=== PATIENT | male | born 1990 | race Caucasian/White ===

== ENCOUNTER 2017-12-25 20:41 | Inpatient (IN) | payer OTHER ==
[~2017-12-25] VITALS: Ht 172.7 cm; Wt 102.5 kg
[2017-12-25 21:05] LABS: BILIRUBIN NEGATIVE (NEGATIVE); BLOOD NEGATIVE (NEGATIVE); CLARITY CLEAR (CLEAR); COLOR YELLOW (YELLOW); GLUCOSE NEGATIVE (NEGATIVE); KETONE NEGATIVE (NEGATIVE); LEUKO ESTERASE NEGATIVE (NEGATIVE); NITRITE NEGATIVE (NEGATIVE); SPECIFIC GRAVITY >= 1.030 (1.005-1.030); UROBILINOGEN 0.2 E.U./dl (0.2-1.0)
[2017-12-25 21:14] LABS: URINE AMPHETAMINES < 1000 (1000ng/ml); URINE BARBITURATES < 200 (200ng/ml); URINE BENZODIAZEPINES < 200 (200ng/ml); URINE CANNABINOIDS (THC) < 50 (50ng/ml); URINE COCAINE > 300 (300ng/ml); URINE METHADONE < 300 (300ng/ml); URINE OPIATES < 300 (300ng/ml)
[2017-12-25 21:15] LABS: URINE PHENCYCLIDINE < 25 (25ng/ml)
[2017-12-25 21:18] LABS: BACTERIA 1+; EPITHELIAL CELLS 0-2; MUCOUS 1+; RBC 0-2 rbc/hpf (0-2)
[2017-12-25 21:19] VITALS: BP 102/81
[2017-12-25] MEDS ORDERED: PROZAC40 M1 PO (21:24)
[2017-12-25] MEDS ORDERED: BUSPAR15 MG PO (21:24)
[2017-12-25] MEDS ORDERED: SEROQUEL200 MG PO (21:25)
[2017-12-25 21:35] LABS: ABG BASE EXCESS -1.1 mmol/L (-2.0-2.0); ABG HCO3 23.4 mmol/l (22-26); ARTERIAL BLOOD GAS PCO2 39.6 mmHg (35-45); ARTERIAL BLOOD GAS PH 7.387 (7.35-7.45); ARTERIAL BLOOD GAS PO2 51.7 mmHg (80-90); IONIZIED CALCIUM 4.74 MG/DL (4.5-5.6)
[2017-12-25 21:43] LABS: BASO % 0.3 % (0.0-1.0); EOS # 0.1 10*3/uL (0.0-0.4); EOS % 0.7 % (1.0-4.0); HEMOGLOBIN 15.4 g/dl (14.0-18.0); LYMPH # 2.1 10*3/uL (1.3-4.4); MEAN CORPUSCULAR HGB 30.1 pg (27.0-31.0); MEAN CORPUSCULAR HGB CONC 32.8 g/dl (33.0-37.0); MEAN PLATELET VOLUME 9.6 fl (9.6-12.3); MONO % 6.9 % (3.0-9.0); NEUT # 10.5 10*3/uL (2.3-7.9); NEUT % 76.7 % (47.0-73.0); PLATELET COUNT AUTOMATED 229 10*3/uL (130-400); RED BLOOD COUNT 5.11 10*6/uL (4.50-5.90); RED CELL DISTRI WIDTH 12.7 % (0-14.5); WHITE BLOOD COUNT 13.7 10*3/uL (4.8-10.8)
[2017-12-25 22:17] LABS: ALBUMIN 3.8 gm/dl (3.1-4.5); ALKALINE PHOSPHATASE 70 U/L (45-117); BUN 24 mg/dl (7-24); CHLORIDE 106 mmol/L (98-107); CREATININE 1.13 mg/dL (0.70-1.30); POTASSIUM 4.2 mmol/L (3.5-5.1); SGOT/AST 27 IU/L (3-35); SGPT/ALT 37 U/L (12-78); SODIUM 138 mmol/L (136-145); TOTAL PROTEIN 7.1 gm/dL (6.4-8.2)
[2017-12-25 22:18] LABS: ACETAMINOPHEN (TYLENOL) < 2.0 ug/ml (10-30); ETHYL ALCOHOL < 3.0 mg/dl (<3); TROPONIN I < 0.015 ng/ml (<0.045)
[2017-12-26 00:17] VITALS: BP 116/66
[2017-12-26 04:00] VITALS: BP 94/57
[2017-12-26 05:54] LABS: ALBUMIN 3.5 gm/dl (3.1-4.5); BUN 21 mg/dl (7-24); CHLORIDE 104 mmol/L (98-107); CHOLESTEROL 166 mg/dL (<200); CREATININE 0.82 mg/dL (0.70-1.30); HEMATOCRIT 42.1 % (42.0-52.0); HEMOGLOBIN 13.8 g/dl (14.0-18.0); MEAN CELL VOLUME 91.5 fl (80.0-94.0); MEAN CORPUSCULAR HGB CONC 32.8 g/dl (33.0-37.0); MEAN PLATELET VOLUME 10.8 fl (9.6-12.3); PHOSPHOROUS 3.6 mg/dL (2.5-4.9); POTASSIUM 3.7 mmol/L (3.5-5.1); RED CELL DISTRI WIDTH 12.8 % (0-14.5); SGOT/AST 17 IU/L (3-35); SGPT/ALT 30 U/L (12-78); SODIUM 139 mmol/L (136-145); TOTAL PROTEIN 6.6 gm/dL (6.4-8.2); TRIGLYCERIDES 78 mg/dl (<150); VLDL CHOLESTEROL 16 mg/dL (6-40); WHITE BLOOD COUNT 14.7 10*3/uL (4.8-10.8)
[2017-12-26 06:00] LABS: ALKALINE PHOSPHATASE 62 U/L (45-117); FREE T4 0.81 ng/dl (0.76-1.46); HDL CHOLESTEROL 48 mg/dl (40-60); LDL CHOLESTEROL 102 mg/dL (9-159); THYROID STIM HORMONE (HS) 0.663 uIU/ml (0.358-4.75)
[2017-12-26 06:12] LABS: PLATELET COUNT AUTOMATED 181 10*3/uL (130-400)
[2017-12-26 07:05] LABS: ATYPICAL LYMPHS 1 % (0-0); PLATELET SUFFICIENCY NORMAL (NORMAL); TOTAL CELLS COUNTED 100 #CELLS
[2017-12-26 08:00] VITALS: BP 103/58
[2017-12-26 08:22] LABS: VITAMIN D, 25-HYDROXY 16.3 ng/mL (30-100)
[2017-12-26 12:00] VITALS: BP 94/49
[2017-12-26 16:00] VITALS: BP 103/47
[2017-12-26 20:00] VITALS: BP 100/42
[2017-12-27] VITALS: BP 122/78
[2017-12-27 04:00] VITALS: BP 120/70
[2017-12-27 05:46] LABS: ALBUMIN 3.4 gm/dl (3.1-4.5); ALKALINE PHOSPHATASE 62 U/L (45-117); BUN 14 mg/dl (7-24); CHLORIDE 102 mmol/L (98-107); CREATININE 0.66 mg/dL (0.70-1.30); PHOSPHOROUS 3.6 mg/dL (2.5-4.9); POTASSIUM 3.8 mmol/L (3.5-5.1); SGOT/AST 21 IU/L (3-35); SGPT/ALT 30 U/L (12-78); SODIUM 139 mmol/L (136-145); TOTAL PROTEIN 6.5 gm/dL (6.4-8.2)
[2017-12-27 06:01] LABS: BASO % 0.4 % (0.0-1.0); EOS # 0.3 10*3/uL (0.0-0.4); EOS % 3.2 % (1.0-4.0); HEMATOCRIT 41.8 % (42.0-52.0); HEMOGLOBIN 14.1 g/dl (14.0-18.0); LYMPH # 1.8 10*3/uL (1.3-4.4); MEAN CELL VOLUME 89.9 fl (80.0-94.0); MEAN CORPUSCULAR HGB 30.3 pg (27.0-31.0); MEAN CORPUSCULAR HGB CONC 33.7 g/dl (33.0-37.0); MEAN PLATELET VOLUME 9.8 fl (9.6-12.3); MONO # 0.8 10*3/uL (0.1-1.0); NEUT # 5.2 10*3/uL (2.3-7.9); PLATELET COUNT AUTOMATED 190 10*3/uL (130-400); RED BLOOD COUNT 4.65 10*6/uL (4.50-5.90); RED CELL DISTRI WIDTH 12.6 % (0-14.5); WHITE BLOOD COUNT 8.1 10*3/uL (4.8-10.8)
[2017-12-27 08:00] VITALS: BP 110/70
[2017-12-27 12:00] VITALS: BP 118/64
[2017-12-27 16:00] VITALS: BP 125/62
[2017-12-27 20:00] VITALS: BP 141/68
[2017-12-28] VITALS: BP 119/57
[2017-12-28 08:00] VITALS: BP 121/65
[2017-12-28 12:00] VITALS: BP 135/63
[2017-12-28 16:00] VITALS: BP 122/62
[2017-12-28 20:00] VITALS: BP 142/71
[2017-12-29] VITALS: BP 126/77
[2017-12-29 08:00] VITALS: BP 114/73
[2017-12-29 12:00] VITALS: BP 122/76
[2017-12-29] MEDS ORDERED: ATARAX,VISTARIL50 MG PO (12:48)
[2017-12-29] MEDS ORDERED: DOXYCYCLINE MO100 M1 PO (12:48)
[2017-12-29] MEDS ORDERED: VITAMIN D-32000 UNIT PO (12:48)
[2017-12-29 16:00] VITALS: BP 128/74
[2017-12-29 20:00] VITALS: BP 125/70
[2017-12-30] VITALS: BP 108/61
[2017-12-30 06:06] LABS: BASO % 0.6 % (0.0-1.0); EOS # 0.3 10*3/uL (0.0-0.4); EOS % 4.3 % (1.0-4.0); HEMATOCRIT 44.4 % (42.0-52.0); HEMOGLOBIN 14.8 g/dl (14.0-18.0); LYMPH # 2.1 10*3/uL (1.3-4.4); LYMPH % 29.6 % (27.0-41.0); MEAN CELL VOLUME 89.7 fl (80.0-94.0); MEAN CORPUSCULAR HGB 29.9 pg (27.0-31.0); MEAN CORPUSCULAR HGB CONC 33.3 g/dl (33.0-37.0); MEAN PLATELET VOLUME 9.4 fl (9.6-12.3); MONO # 0.8 10*3/uL (0.1-1.0); NEUT # 3.7 10*3/uL (2.3-7.9); NEUT % 52.9 % (47.0-73.0); PLATELET COUNT AUTOMATED 234 10*3/uL (130-400); RED BLOOD COUNT 4.95 10*6/uL (4.50-5.90); RED CELL DISTRI WIDTH 12.3 % (0-14.5)
[2017-12-30 06:31] LABS: CREATININE 0.83 mg/dL (0.70-1.30)
[2017-12-30 08:00] VITALS: BP 128/86
[2017-12-30 12:00] VITALS: BP 119/62
== END 2017-12-30 14:59 | disposition home or self-care (01) | DRG 917 ==
LOC: ED 20:41 → ICCU 22:24 → EDHOLD 22:24 → 4E 22:24 → ICCU 22:51 → 4E 12-27 13:11
PROVIDERS: Emergency Medicine Emergency Medical Services; Internal Medicine; Internal Medicine Nephrology
DX: T40.1X1A Poisoning by heroin, accidental (unintentional), initial encounter (principal); I46.9 Cardiac arrest, cause unspecified; J18.9 Pneumonia, unspecified organism; R65.10 Systemic inflammatory response syndrome (SIRS) of non-infectious origin without acute organ dysfunction; E66.01 Morbid (severe) obesity due to excess calories; T40.4X1A Poisoning by other synthetic narcotics, accidental (unintentional), initial encounter; E55.9 Vitamin D deficiency, unspecified; F17.210 Nicotine dependence, cigarettes, uncomplicated; F14.10 Cocaine abuse, uncomplicated; R09.02 Hypoxemia; Y92.89 Other specified places as the place of occurrence of the external cause; Z71.6 Tobacco abuse counseling; Z68.34 Body mass index [BMI] 34.0-34.9, adult; Z88.8 Allergy status to other drugs, medicaments and biological substances; Z83.3 Family history of diabetes mellitus

== ENCOUNTER 2018-04-11 12:47 | Emergency (ER) | payer OTHER ==
[~2018-04-11] VITALS: Ht 172.7 cm; Wt 99.8 kg
[~2018-04-11 12:47] MED LIST: ATARAX,VISTARIL50 MG PO; BUSPAR15 MG PO; DOXYCYCLINE MO100 M1 PO; PROZAC40 M1 PO; SEROQUEL200 MG PO; VITAMIN D-32000 UNIT PO
[2018-04-11] MEDS ORDERED: NAPROSYN500 MG PO (12:52)
[2018-05-30] MEDS ORDERED: NAPROSYN500 MG PO (14:52)
== END 2018-04-11 14:15 | disposition home or self-care (01) ==
LOC: ED 12:47
DX: S93.401A Sprain of unspecified ligament of right ankle, initial encounter (principal); R03.0 Elevated blood-pressure reading, without diagnosis of hypertension; F17.200 Nicotine dependence, unspecified, uncomplicated; F14.10 Cocaine abuse, uncomplicated; E66.9 Obesity, unspecified; Z90.89 Acquired absence of other organs; Z79.899 Other long term (current) drug therapy; X50.1XXA Overexertion from prolonged static or awkward postures, initial encounter; Y93.89 Activity, other specified; Y92.89 Other specified places as the place of occurrence of the external cause; Y99.9 Unspecified external cause status

== ENCOUNTER → 2018-05-01 | Outpatient (CLI) | payer OTHER ==
[~2018-05-01] MED LIST changes: +LASIX20 MG PO; +NAPROSYN500 MG PO
[2018-05-01 15:56] LABS: BASO % 0.5 % (0.0-1.0); EOS # 0.4 10*3/uL (0.0-0.4); EOS % 5.8 % (1.0-4.0); HEMOGLOBIN 15.2 g/dl (14.0-18.0); LYMPH # 1.6 10*3/uL (1.3-4.4); MEAN CELL VOLUME 88.1 fl (80.0-94.0); MEAN CORPUSCULAR HGB 29.7 pg (27.0-31.0); MEAN CORPUSCULAR HGB CONC 33.8 g/dl (33.0-37.0); MEAN PLATELET VOLUME 9.5 fl (9.6-12.3); MONO # 0.7 10*3/uL (0.1-1.0); MONO % 11.2 % (3.0-9.0); NEUT # 3.9 10*3/uL (2.3-7.9); NEUT % 58.3 % (47.0-73.0); PLATELET COUNT AUTOMATED 237 10*3/uL (130-400); RED BLOOD COUNT 5.11 10*6/uL (4.50-5.90); RED CELL DISTRI WIDTH 12.7 % (0-14.5); WHITE BLOOD COUNT 6.6 10*3/uL (4.8-10.8)
[2018-05-01 16:15] LABS: BILIRUBIN NEGATIVE (NEGATIVE); BLOOD NEGATIVE (NEGATIVE); CLARITY CLEAR (CLEAR); COLOR YELLOW (YELLOW); GLUCOSE NEGATIVE (NEGATIVE); KETONE NEGATIVE (NEGATIVE); LEUKO ESTERASE NEGATIVE (NEGATIVE); NITRITE NEGATIVE (NEGATIVE); SPECIFIC GRAVITY >= 1.030 (1.005-1.030); UROBILINOGEN 0.2 E.U./dl (0.2-1.0)
[2018-05-01 16:27] LABS: ALBUMIN 3.9 gm/dl (3.1-4.5); ALKALINE PHOSPHATASE 73 U/L (45-117); BUN 19 mg/dl (7-24); CHLORIDE 108 mmol/L (98-107); CHOLESTEROL 167 mg/dL (<200); CREATININE 0.93 mg/dL (0.70-1.30); HDL CHOLESTEROL 51 mg/dl (40-60); LDL CHOLESTEROL 95 mg/dL (9-159); POTASSIUM 3.9 mmol/L (3.5-5.1); SGOT/AST 60 IU/L (3-35); SGPT/ALT 144 U/L (12-78); SODIUM 140 mmol/L (136-145); T3 UPTAKE 32 % (31-39); THYROXINE (T4) TOTAL 8.7 ug/dl (4.5-12.1); TOTAL PROTEIN 7.4 gm/dL (6.4-8.2); TRIGLYCERIDES 107 mg/dl (<150); VLDL CHOLESTEROL 21 mg/dL (6-40)
[2018-05-01 16:32] LABS: THYROID STIM HORMONE (HS) 0.907 uIU/ml (0.358-4.75)
[2018-05-01 16:35] LABS: MUCOUS 1+
[2018-05-01 16:36] LABS: BACTERIA TRACE; CALCIUM OXALATE CRYSTALS 1+; RBC 0-2 rbc/hpf (0-2); WBC 0-2 wbc/hpf (0-5)
[2018-05-01 19:00] LABS: VITAMIN D, 25-HYDROXY 20.8 ng/mL (30-100)
== END | disposition home or self-care (01) ==
LOC: LAB 15:14
PROVIDERS: Family Medicine
DX: F41.9 Anxiety disorder, unspecified (principal); F32.9 Major depressive disorder, single episode, unspecified; F41.0 Panic disorder [episodic paroxysmal anxiety]; E66.9 Obesity, unspecified; E55.9 Vitamin D deficiency, unspecified; Z79.899 Other long term (current) drug therapy; Z90.89 Acquired absence of other organs; Z87.891 Personal history of nicotine dependence

== ENCOUNTER 2018-05-21 00:33 | Emergency (ER) | payer OTHER ==
[~2018-05-21] VITALS: Ht 172.7 cm; Wt 108.9 kg
--- NOTE | ~2018-05-21 | EKG ---
[place], [place] ELECTROCARDIOGRAM REPORT NAME: HERNANDEZ PELLETIER UNIT #: [id number] ROOM: DOCTOR: DISHA DRAFT REPORT BIRTHDATE: [birth year] [facility] Test Date: 2018-05-21 Test Time: 00:40:14 Pat Name: HERNANDEZ PELLETIER Department: Room: Gender: Table Tender: : 1990 Requested By: CLAIR DAILY Order Number: [id number] Reading MD: Measurements Intervals [place] Rate: 76 P: 56 DE: 135 QRS: 42 QRSD: 99 T: 29 QT: 377 QTc: 424 Interpretive Statements Sinus rhythm No previous ECG available for comparison CM:EKGRPT:ELECTROCARDIOGRAM REPORT [id number] CLAIR HDZ DRAFT REPORT CLAIR DAILY DO
[~2018-05-21 00:33] MED LIST changes: -LASIX20 MG PO
[2018-05-21 01:21] LABS: BASO % 0.6 % (0.0-1.0); EOS # 0.3 10*3/uL (0.0-0.4); EOS % 4.6 % (1.0-4.0); HEMOGLOBIN 13.1 g/dl (14.0-18.0); LYMPH # 1.9 10*3/uL (1.3-4.4); LYMPH % 27.7 % (27.0-41.0); MEAN CELL VOLUME 90.3 fl (80.0-94.0); MEAN CORPUSCULAR HGB 30.3 pg (27.0-31.0); MEAN CORPUSCULAR HGB CONC 33.6 g/dl (33.0-37.0); MEAN PLATELET VOLUME 9.5 fl (9.6-12.3); MONO # 0.9 10*3/uL (0.1-1.0); MONO % 13.2 % (3.0-9.0); NEUT # 3.7 10*3/uL (2.3-7.9); NEUT % 52.7 % (47.0-73.0); PLATELET COUNT AUTOMATED 186 10*3/uL (130-400); RED BLOOD COUNT 4.32 10*6/uL (4.50-5.90); RED CELL DISTRI WIDTH 12.6 % (0-14.5); WHITE BLOOD COUNT 6.9 10*3/uL (4.8-10.8)
[2018-05-21 01:31] LABS: ACT PARTIAL THROMBO TIME 24.5 SECONDS (20.8-31.5)
[2018-05-21 01:39] LABS: ALBUMIN 3.3 gm/dl (3.1-4.5); ALKALINE PHOSPHATASE 61 U/L (45-117); BUN 15 mg/dl (7-24); CHLORIDE 104 mmol/L (98-107); CREATININE 1.13 mg/dL (0.70-1.30); SGOT/AST 28 IU/L (3-35); SGPT/ALT 72 U/L (12-78); SODIUM 139 mmol/L (136-145); TOTAL PROTEIN 6.3 gm/dL (6.4-8.2)
[2018-05-21 01:40] LABS: TROPONIN I < 0.015 ng/ml (<0.045)
[2018-05-21] MEDS ORDERED: LASIX20 MG PO (02:00)
[2018-05-30] MEDS ORDERED: NAPROSYN500 MG PO (14:52)
== END 2018-05-21 02:04 | disposition home or self-care (01) ==
LOC: ED 00:33
PROVIDERS: Student in an Organized Health Care Education/Training Program
DX: R07.89 Other chest pain (principal); M79.89 Other specified soft tissue disorders